=== PATIENT | female | born 1980 | race Caucasian/White ===

== ENCOUNTER 2020-07-07 17:27 | Emergency (ER) | payer SELFPAY ==
[~2020-07-07] VITALS: Ht 157.5 cm; Wt 85.0 kg
--- NOTE | 2020-07-07 17:58 | PHYS DOC ---
Past History Past Surgical History: Tubal ligation General Adult EDM: Chief Complaint: ABDOMINAL PAIN HPI: HPI: ".. I have currently been hurting the last 2 days... Just much worse today ... here on the right side.... I did eat a salad for lunch but the pain is never go ne away.... Pt. seems to be in my rt. flank and radiates downward... It is sometimes it is really severe..." Patient is a 39 year old female who presents with above hx and complaints right sided abdomen pain. Pain does seem to localize in right mid and lower quadrant on rebound. Patient denies any intake of bad food. No history of trauma. No history of recent travel outside the [place] area. No specific ill contacts. Patient is caring for 3 cats Lit, Tobjose and Simtyson.. alll are up to date with vaccinations. Pt also caring for Setswana Amy Klein.. She is up-to-date with vaccination. No one else in the household are ill. Did not get flu vaccination this year. No history of immunosuppression. Only abdomen surgery she has had is a tubal ligation 13 years ago. Patient in the past is followed with Dr. Adkins. Patient denies any Covid risk factors. Review of Systems: Review of Systems: Constitutional: Denies fever or chills Eyes: Denies change in visual acuity HENT: Denies nasal congestion or sore throat Respiratory: Denies cough or shortness of breath Cardiovascular: Denies chest pain or edema GI: Complains of moderately severe abdominal pain, nausea,. Denies vomiting, bloody stools or diarrhea : Denies dysuria Musculoskeletal: Rt flank back pain or joint pain Integument: Denies rash Neurologic: Denies headache, focal weakness or sensory changes Endocrine: Denies polyuria or polydipsia Lymphatic: Denies swollen glands Psychiatric: Denies depression or anxiety Family History: Family History: Noncontributory Current Medications: Current Meds: See nursing for home meds Allergies: Allergies: Allergies Coded Allergies Type Severity Reaction Last Updated Verified No Known Drug Allergies 07/07/20 No Physical Exam: PE: Constitutional: Well developed, well nourished, no acute distress, non-toxic appearance. [] HENT: Normocephalic, atraumatic, bilateral external ears normal, oropharynx moist, no oral exudates, nose normal. [] Eyes: PERRLA, EOMI, conjunctiva normal, no discharge. [] Neck: Normal range of motion, no tenderness, supple, no stridor. [] Cardiovascular:Heart rate regular rhythm, no murmur [] Lungs & Thorax: Bilateral breath sounds equal apex on auscultation [] Abdomen: Bowel sounds decreased, soft, right mid and lower quadrant tenderness, no masses, no pulsatile masses. [] Declined rect/or /vaginal at this time. Skin: Warm, dry, no erythema, no rash. [] Back: Right flank tenderness, more right flank CVA tenderness on percussion Extremities: No tenderness, no cyanosis, no clubbing, ROM intact, no edema. No true psoas sign. No cording appreciated Neurologic: Alert and oriented X 3, normal motor function, normal sensory function, no focal deficits noted. [] Psychologic: Affect anxious, judgement normal, mood normal. [] EKG: EKG: My interpretation EKG shows a sinus rhythm at 74 bpm. No acute morphology [] Radiology/Procedures: Radiology/Procedures: [place] [address] IMAGING REPORT Signed PATIENT: VISH SPAULDING ACCOUNT: [id number] : 1980 LOCATION: ER AGE: 39 SEX: F EXAM STATUS: REG ER ORD. PHYSICIAN: EREN HOUSE MD REASON: flank pain, hematuria PROCEDURE: CT CHEST ABDOMEN PELVIS WO CT CHEST_ABDOMEN_ AND PELVIS WITHOUT CONTRAST INDICATION: flank pain, hematuria COMPARISON: None. TECHNIQUE: Multiple contiguous axial images were obtained throughout the chest, abdomen, an d pelvis without the use of IV contrast. Axial images were reformatted into coronal and sagittal planes. One or more of the following dose reduction techniques were utilized: Automated exposure control (AEC), Adjustment of mA and/or kV according to patient size, Use of iterative reconstruction technique such as ASiR, CT scan done according to ALARA and image gently/image wisely. FINDINGS: Chest Findings: The thyroid is symmetric. There is no axillary, mediastinal, or hilar adenopathy, although evaluation of the william is limited without IV contrast. The thoracic aorta diameter is normal. The cardiac size is normal. There is no pericardial effusion. The central airways are patent. Lungs are clear. No pleural abnormality. Abdomen findings: Evaluation of solid abdominal viscera is limited without the use of IV contrast. However, the liver, gallbladder, spleen, pancreas, and adrenal glands are unremarkable. The kidneys are unremarkable. There is no significant mesenteric or retroperitoneal adenopathy identified, though evaluation is limited without intravenous contrast. There is no evidence of free intraperitoneal fluid or pneumoperitoneum. Visualized portions of the bowel are grossly unremarkable. Pelvis findings: Urinary bladder is decompressed. There is no significant pelvic ascites. No significant iliac or inguinal adenopathy is identified. No acute osseous abnormality. 7 mm anterolisthesis at L5-S1 due to bilateral L5 pars defects. IMPRESSION: 1. No hydronephrosis or opaque urinary calculi. 2. No pulmonary mass or consolidation. Electronically signed by: Jarvis Wang MD (07/07/2020 8:38 PM) [facility] DICTATED AND SIGNED BY: JARVIS WANG MD DATE: 07/07/202029 CC: EREN HOUSE MD; PCP,NO ~MTH0 0 [place] [address] IMAGING REPORT Signed PATIENT: VISH SPAULDING ACCOUNT: [id number] : 1980 LOCATION: ER AGE: 39 SEX: F EXAM STATUS: REG ER ORD. PHYSICIAN: EREN HOUSE MD REASON: ABDOMEN PAIN, RLQ PAIN, X 1 YEAR, WORSE 1 DAY PROCEDURE: ACUTE ABDOMEN SERIES Exam: Acute abdominal series INDICATION: Abdominal pain, right lower quadrant pain TECHNIQUE: Frontal view of chest with upright and supine views of the abdomen Comparisons: None FINDINGS: The cardiomediastinal silhouette and pulmonary vessels are within normal limits. The lung and pleural spaces are clear. Air and stool are noted throughout the colon to level the rectum in a nonobstructive bowel gas pattern. No suspicious masses or calcifications. Visualized osseous structures are unremarkable. IMPRESSION: 1. No acute cardiopulmonary process. 2. Nonobstructive bowel gas pattern. Electronically signed by: Chaparro Barrett MD (07/07/2020 7:07 PM) [facility] DICTATED AND SIGNED BY: CHAPARRO BARRETT MD DATE: 07/07/201904 CC: EREN HOUSE MD; PCP,NO ~MTH0 0 [][address] [address] Heart Score: C/O Chest Pain: N/A HEART Score for Chest Pain: HEART Score for Chest Pain Response (Comments) Value History Slighlty/Non-Suspicious 0 ECG Normal 0 Age < 45 0 Risk Factors 1 or 2 Risk Factors 1 Troponin < Normal Limit 0 Total 1 Risk Factors: Risk Factors: DM, Current or recent (<one month) smoker, HTN, HLP, family history of CAD, obesity. Risk Scores: Score 0 - 3: 2.5% MACE over next 6 weeks - Discharge Home Score 4 - 6: 20.3% MACE over next 6 weeks - Admit for Clinical Observation Score 7 - 10: 72.7% MACE over next 6 weeks - Early Invasive Strategies Course & Med Decision Making: Course & Med Decision Making Pertinent Labs and Imaging studies reviewed. (See chart for details) Patient stay on clear fluids for the next 2 days. Patient push clear fluids. Patient return if continued pain. On return may consider a CT of abdomen pelvis with IV contrast and oral contrast. Patient follow-up primary care. Patient return if any concerns. Encourage patient remain on a clear fluid diet until completely pain-free 24 hours. No milk products. No solids. Must allow bowel rest for the next couple days. Follow-up primary care. Impression: 1. Abdomen Pain 2. Right flank pain 3. Hematuria 4. Marijuana use [] Dragon Disclaimer: Dragon Disclaimer: This electronic medical record was generated, in whole or in part, using a voice recognition dictation system. Departure Departure: Referrals: PCP,NO (PCP) Dragon Disclaimer This chart was dictated in whole or in part using Voice Recognition software in a busy, high-work load, and often noisy Emergency Department environment. It may contain unintended and wholly unrecognized errors or omissions. Dragon Disclaimer This chart was dictated in whole or in part using Voice Recognition software in a busy, high-work load, and often noisy Emergency Department environment. It may contain unintended and wholly unrecognized errors or omissions. EREN HOUSE MD Jul 07, 2020 17:58
[2020-07-07] MEDS ORDERED: IV RINGERS SOLUTION,LACTATED 1,000 ML IV SCH (18:30)
[2020-07-07] MEDS ORDERED: FAMOTIDINE 20 MG/2 ML VIAL IVP ONE (18:45)
[2020-07-07] MEDS ORDERED: MAGNESIUM HYDROXIDE 2,400 MG/30 ML ORAL.SUSP. PO ONE (18:45)
[2020-07-07] MEDS ORDERED: ONDANSETRON PF 4 MG/2 ML VIAL. IVP ONE (18:45)
[2020-07-07] MEDS ORDERED: KETOROLAC 30 MG/ML VIAL. IVP ONE (18:45)
[2020-07-07 18:47] LABS: BASO % 0 % (0-3); EOS % 0 % (0-3); HEMOGLOBIN 12.7 g/dL (12.0-15.5); LYMPH # 2.7 x10^3/uL (1.0-4.8); LYMPH % 27 % (24-48); MEAN CORPUSCULAR HEMOGLOBIN 31 pg (25-35); MEAN CORPUSCULAR HGB CONC 33 g/dL (31-37); MEAN CORPUSCULAR VOLUME 92 fL (79-100); MONO # 0.6 x10^3/uL (0.0-1.1); MONO % 6 % (0-9); NEUT # 6.7 x10^3uL (1.8-7.7); NEUT % 67 % (31-73); PLATELET COUNT 356 x10^3/uL (140-400); RED BLOOD COUNT 4.15 x10^6/uL (3.50-5.40); RED CELL DISTRIBUTION WIDTH 13.7 % (11.5-14.5); WHITE BLOOD COUNT 10.1 x10^3/uL (4.0-11.0)
[2020-07-07 18:48] LABS: AMPHETAMINE/METHAMPHETAMINE NEG (NEG); BARBITURATES NEG (NEG); BENZODIAZEPINES NEG (NEG); CANNABINOIDS POS (NEG); COCAINE NEG (NEG); METHADONE NEG (NEG); OPIATES NEG (NEG); PHENCYCLIDINE NEG (NEG)
[2020-07-07 18:54] LABS: BACTERIA,URINE 0 /HPF (0-FEW); BILIRUBIN,URINE NEG (NEG); CLARITY,URINE HAZY; COLOR,URINE YELLOW; GLUCOSE,URINE NEG (NEG); NITRITE,URINE NEG (NEG); SQUAMOUS EPITHELIAL CELL,UR FEW /LPF; UROBILINOGEN,URINE 0.2 mg/dL (0.2 mg/dL); WBC,URINE OCC /HPF (0-4)
[2020-07-07 18:56] LABS: CALCIUM 9.1 mg/dL (8.5-10.1); CREATININE 0.8 mg/dL (0.6-1.0); GFR 80.7; POTASSIUM 3.7 mmol/L (3.5-5.1)
--- NOTE | 2020-07-07 18:56 | EKG ---
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
[2020-07-07 19:00] LABS: DIRECT BILIRUBIN 0.1 mg/dL (0.0-0.2); TOTAL BILIRUBIN 0.5 mg/dL (0.2-1.0); TOTAL PROTEIN 7.5 g/dL (6.4-8.2)
--- NOTE | 2020-07-07 19:09 | RAD ---
Exam: Acute abdominal series INDICATION: Abdominal pain, right lower quadrant pain TECHNIQUE: Frontal view of chest with upright and supine views of the abdomen Comparisons: None FINDINGS: The cardiomediastinal silhouette and pulmonary vessels are within normal limits. The lung and pleural spaces are clear. Air and stool are noted throughout the colon to level the rectum in a nonobstructive bowel gas patter n. No suspicious masses or calcifications. Visualized osseous structures are unremarkable. IMPRESSION: 1. No acute cardiopulmonary process. 2. Nonobstructive bowel gas pattern. Electronically signed by: Chaparro Marin MD (07/07/2020 7:07 PM) [facility]
--- NOTE | 2020-07-07 20:41 | RAD ---
CT CHEST_ABDOMEN_ AND PELVIS WITHOUT CONTRAST INDICATION: flank pain, hematuria COMPARISON: None. TECHNIQUE: Multiple contiguous axial images were obtained throughout the chest, abdomen, and pelvis without the use of IV contrast. Axial images were reformatted into coronal and sagittal planes. One or more of th e following dose reduction techniques were utilized: Automated exposure control (AEC), Adjustment of mA and/or kV according to patient size, Use of iterative reconstruction technique such as ASiR, CT sc an done according to ALARA and image gently/image wisely. FINDINGS: Chest Findings: The thyroid is symmetric. There is no axillary, mediastinal, or hilar adenopathy, although evaluatio n of the william is limited without IV contrast. The thoracic aorta diameter is normal. The cardiac size is normal. There is no pericardial effusion. The central airways are patent. Lungs are clear. No pleural abnormality. Abdomen findings: Evaluation of solid abdominal viscera is limited without the use of IV contrast. However, the liver, gallbladder, spleen, pancreas, and adrenal glands are unremarkable. The kidneys are unremarkable. There is no significant mesenteric or retroperitoneal adenopathy identified, though evaluation is jqauez ited without intravenous contrast. There is no evidence of free intraperitoneal fluid or pneumoperit oneum. Visualized portions of the bowel are grossly unremarkable. Pelvis findings: Urinary bladder is decompressed. There is no significant pelvic ascites. No significant iliac or in guinal adenopathy is identified. No acute osseous abnormality. 7 mm anterolisthesis at L5-S1 due to bilateral L5 pars defects. IMPRESSION: 1. No hydronephrosis or opaque urinary calculi. 2. No pulmonary mass or consolidation. Electronically signed by: Jaden Wang MD (07/07/2020 8:38 PM) [facility]
[2020-07-07 21:41] VITALS: BP 145/87
== END 2020-07-07 21:40 | disposition home or self-care (01) ==
LOC: ER 17:27
DX: R10.31 Right lower quadrant pain (principal); R31.9 Hematuria, unspecified; R11.0 Nausea; F12.90 Cannabis use, unspecified, uncomplicated; Z98.51 Tubal ligation status
CPT/HCPCS: 36415; 71250; 74022; 74176; 80048; 80076; 80307; 81001; 81025; 82150; 83690; 84484; 85025; 85610; 85730; 87086; 93005; 96361; 96374; 96375; 99285; J1885; J2405; J3490; J7120